=== PATIENT | male | born 1955 | race Caucasian/White ===

== ENCOUNTER 2017-06-23 13:23 | Emergency (ER) | payer MEDICAID ==
--- NOTE | 2017-06-23 13:49 | EDM.PDOC ---
ED HPI GENERAL MEDICAL PROBLEM - General Chief Complaint: Lower Extremity Injury/Pain Stated Complaint: HURT RT ANKLE Time Seen by Provider: 06/23/17 13:40 Source of Information: Reports: Patient History Limitations: Reports: No Limitations - History of Present Illness INITIAL COMMENTS - FREE TEXT/NARRATIVE: 61 yo male slipped on the ice about 8 pm last david. with resulting ankle injury. Here for eval. No other injuries. 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: Other (see below) (none) Right Arm Pain Score (Numeric/FACES): 8 - Related Data Allergies Allergy/AdvReac Type Severity Reaction Status Date / Time levofloxacin [From Levaquin] Allergy Muscle Verified 06/23/17 13:38 Aches Sulfa (Sulfonamide Allergy Itching Verified 06/23/17 13:38 Antibiotics) Home Meds: Home Meds NK [No Known Home Meds] 06/23/17 [History] Past Medical History Cardiovascular History: Reports: Hypertension Musculoskeletal History: Reports: Gout Psychiatric History: Reports: ADHD, Anxiety Social & Family History - Tobacco Use Smoking Status *Q: Never Smoker - Recreational Drug Use Recreational Drug Use: No Review of Systems - Review of Systems Review Of Systems: See Below Constitutional: Reports: No Symptoms Musculoskeletal: Reports: Joint Swelling (R ankle) Skin: Reports: Bruising Neurological: Reports: No Symptoms ED EXAM, GENERAL - Physical Exam Exam: See Below Exam Limited By: No Limitations General Appearance: Alert, WD/WN, No Apparent Distress Extremities: Joint Swelling (R ankle), Other (No lateral foot pain. Minimal proximal fibula tenderness. ) Neurological: Alert, Oriented, CN II-XII Intact, Normal Cognition, No Motor/ Sensory Deficits Psychiatric: Normal Affect, Normal Mood Skin Exam: Warm, Dry, Intact, Ecchymosis (early bruising noted. ). No: Erythema Course - Vital Signs Text/Narrative:: short leg posterior splint applied by nursing. Last Recorded V/S: Last Vital Signs Temp 36.2 C 06/23/17 13:34 Pulse 92 04/15/18 13:34 Resp 16 06/23/17 13:34 BP 139/80 06/23/17 13:34 Pulse Ox 97 06/23/17 13:34 - Orders/Labs/Meds Orders: Active Orders 24 hr Category Date Time Status Ankle Min 3V Rt [CR] Stat Exams 06/23/17 13:46 Ordered - Radiology Interpretation Free Text/Narrative:: R ankle [id number] fibula fx Departure - Departure Time of Disposition: 14:40 Disposition: Home, Self-Care 01 Condition: Fair Clinical Impression: Fracture of distal fibula Qualifiers: Encounter type: initial encounter Fracture type: closed Fracture morphology: unspecified fracture morphology Laterality: right Qualified Code(s): S82.831A - Other fracture of upper and lower end of right fibula, initial encounter for closed fracture - Discharge Information Referrals: PCP,None [Primary Care Provider] - Forms: ED Department Discharge - My Orders Last 24 Hours: My Active Orders 06/23/17 13:46 Ankle Min 3V Rt [CR] Stat - Assessment/Plan Last 24 Hours: My Active Orders 06/23/17 13:46 Ankle Min 3V Rt [CR] Stat
--- NOTE | 2017-06-24 09:54 | CR ---
Ankle Min 3V Rt HISTORY: Injury COMPARISON: None FINDINGS: Fracture through the distal fibula. There does appear to be some chronic remodeling in the fibula likely from prior injury. There is cortical step-off of the lateral aspect of the distal fibul a. The medial malleolus and posterior malleolus appear unremarkable. Moderate lateral swelling.
--- NOTE | 2017-06-24 09:55 | CR ---
Knee 3V Rt HISTORY: Pain COMPARISON: None FINDINGS: No fracture or effusion. There is good joint space preservation. Minimal bony spurring off the superior anterior margin of the patella.
== END 2017-06-23 15:35 | disposition home or self-care (01) ==
LOC: JP.ED 13:23
DX: S82.831A Other fracture of upper and lower end of right fibula, initial encounter for closed fracture (principal); I10 Essential (primary) hypertension; Z88.2 Allergy status to sulfonamides; Z88.8 Allergy status to other drugs, medicaments and biological substances; W00.0XXA Fall on same level due to ice and snow, initial encounter
CPT/HCPCS: 29515; 73562-26-RT; 73562-RT; 73610-26-RT; 73610-RT; 99283; 99284-25

== ENCOUNTER 2017-07-02 14:19 | Day surgery (SDC) | payer MEDICAID ==
[~2017-07-02 14:19] MED LIST: Ketamine 500 MG/5 ML MDV IV SCH; Lactated Ringers 1,000 ML IV SCH; Tranexamic Acid 660 MG in Sodium Chloride 0.9% 50 ML IV SCH; ceFAZolin 2 GM in Premix Bag 1 BAG IV ONE
[2017-07-02] MEDS ORDERED: Gentamicin 40 MG/ML 2 ML Vial ONE (14:29)
[2017-07-02] MEDS ORDERED: Bupivacaine 0.5% 50 ML MDV ONE (14:29)
[2017-07-02] MEDS ORDERED: Povidone-Iodine 10% Soln 118.25 ML Bottle ONE (14:29)
[2017-07-02] MEDS ORDERED: fentaNYL 250 MCG/5 ML SDV ONE (14:41)
[2017-07-02] MEDS ORDERED: Ondansetron 4 MG/2 ML SDV ONE (14:42)
[2017-07-02] MEDS ORDERED: Dexamethasone 4 MG/ML SDV ONE (14:42)
[2017-07-02] MEDS ORDERED: Succinylcholine 200 MG/10 ML MDV ONE (14:42)
[2017-07-02] MEDS ORDERED: Propofol 200 MG/20 ML SDV ONE (14:42)
[2017-07-02] MEDS ORDERED: Glycopyrrolate 0.2 MG/ML 5 ML MDV ONE (14:42)
[2017-07-02] MEDS ORDERED: Neostigmine Methylsulfate 1 MG/ML 5 ML Syringe ONE (14:42)
[2017-07-02] MEDS ORDERED: Rocuronium 50 MG/5 ML Vial ONE (14:42)
[2017-07-02] MEDS ORDERED: Ketorolac 60 MG/2 ML SDV IM ONE (16:28)
[2017-07-02] MEDS ORDERED: Acetaminophen/oxyCODONE 325-5 MG Tab PO PRN (17:48)
--- NOTE | 2017-07-03 00:26 | OR ---
DATE OF PROCEDURE: 07/02/2017 PREOPERATIVE DIAGNOSIS: Right distal tibial fracture. POSTOPERATIVE DIAGNOSIS: Right distal tibial fracture. PROCEDURE PERFORMED: Open reduction and internal fixation, right distal fibular fracture. ANESTHESIA: General endotracheal intubation. FLUID: Lactated Ringer solution. ESTIMATED BLOOD LOSS: Less than 10 mL. COMPLICATION: None. SPECIMEN: None. DISCHARGE DISPOSITION: Stable to PACU. INDICATIONS FOR THE PROCEDURE: The patient slipped on the ice and injured his ankle on July 23. He was seen yesterday in the clinic. Preoperative imaging confirmed the above- mentioned diagnosis. Risks and benefits of the procedure were explained to the patient. Informed consent was obtained. DETAILS OF PROCEDURE: The patient was seen preoperatively by myself and the anesthesia staff in the preoperative holding area, where the operative site was marked. He was brought to the operative suite by the anesthesia staff, where general anesthesia was administered. A well-padded tourniquet was placed on the right thigh. All extremities found to be well padded. The right lower extremity was then prepped and draped in a sterile manner. Time- out was called identifying the correct patient, correct procedure, the correct site, and antibiotics had been given with an appropriate period of time. The right lower extremity was then exsanguinated. Tourniquet was raised to 300 mmHg for 33 minutes and let down after closure. Longitudinal incision was made over the distal fibula shaft approximately 13 to 14 cm. I used an elevator to go through the hematoma and then elevate the soft tissues bluntly as to not damage the superficial peroneal nerve. The superficial peroneal nerve was not encountered during the procedure. An elevator was used to clear the hematoma and soft tissue off the distal fibula. The distal fibula had split in a sagittal manner and then the distal fragment had flexed a great deal of soft tissue was removed. I irrigated quite a bit. It was evident after looking at this under fluoroscopy that there was a previous fracture, which had formed a slight malunion. I decided not to refractured this and rather repair the current fracture that was present. I reapproximated everything as best as I could and then applied the distal fibular plate. I applied four cortical screws and three distal lockers. We took final films in AP and lateral and then copiously irrigated with saline and then closed with #1 Stratafix and estrella followed by Betadine-soaked Adaptic and a sterile dressing. The tourniquet was let down. The patient was then transferred to his hospital bed and taken to the PACU in stable condition. Luis Jaimes DO /[id number]
== END 2017-07-02 18:15 | disposition home or self-care (01) ==
LOC: JP.SDS 14:19
PROVIDERS: ATTEND Orthopaedic Surgery
DX: S82.831A Other fracture of upper and lower end of right fibula, initial encounter for closed fracture (principal); I10 Essential (primary) hypertension; F41.9 Anxiety disorder, unspecified; W00.0XXA Fall on same level due to ice and snow, initial encounter; Z87.891 Personal history of nicotine dependence; Z88.1 Allergy status to other antibiotic agents; Z88.2 Allergy status to sulfonamides; Z79.899 Other long term (current) drug therapy
CPT/HCPCS: 27792; 93005; A9270; C1713; J0330; J0690; J1100; J1885; J2405; J2704; J3010; J7120; J1580; J2710

== ENCOUNTER 2017-07-21 15:50 | Emergency (ER) | payer MEDICAID ==
--- NOTE | 2017-07-21 17:24 | EDM.PDOC ---
ED HPI GENERAL MEDICAL PROBLEM - General Chief Complaint: ENT Problem Stated Complaint: COTTON SWAB STUCK IN RT EAR Time Seen by Provider: 07/21/17 17:15 Source of Information: Reports: Patient, RN Notes Reviewed History Limitations: Reports: No Limitations - History of Present Illness INITIAL COMMENTS - FREE TEXT/NARRATIVE: 61-year-old gentleman presents emergency department today after having a Q-tip break off in his left ear - Related Data Allergies Allergy/AdvReac Type Severity Reaction Status Date / Time levofloxacin [From Levaquin] Allergy Muscle Verified 07/02/17 14:34 Aches Sulfa (Sulfonamide Allergy Itching Verified 07/02/17 14:34 Antibiotics) Home Meds: Home Meds Acetaminophen/oxyCODONE [Percocet 325-5 MG] 1 tab PO TID PRN 07/01/17 [History] diphenhydrAMINE HCl [Benadryl Allergy] 25 mg PO Q4HR PRN 07/01/17 [History] Colchicine 0.6 mg PO DAILY PRN 07/02/17 [History] Acetaminophen/HYDROcodone [[place] 325-5 MG] 1 tab PO TID PRN 07/15/17 [History] Past Medical History HEENT History: Reports: Impaired Vision Cardiovascular History: Reports: CAD, High Cholesterol, Hypertension Respiratory History: Reports: Bronchitis, Recurrent Gastrointestinal History: Reports: None Genitourinary History: Reports: Prostate Disorder Musculoskeletal History: Reports: Fracture, Gout Other Musculoskeletal History: R distal fibula Fx 06/23/17 Neurological History: Reports: None Psychiatric History: Reports: ADHD, Anxiety Endocrine/Metabolic History: Reports: None Hematologic History: Reports: None Immunologic History: Reports: None Oncologic (Cancer) History: Reports: None Dermatologic History: Reports: None - Infectious Disease History Infectious Disease History: Reports: Chicken Pox - Past Surgical History Head Surgeries/Procedures: Reports: None HEENT Surgical History: Reports: Oral Surgery Cardiovascular Surgical History: Reports: None Respiratory Surgical History: Reports: None GI Surgical History: Reports: Colonoscopy Endocrine Surgical History: Reports: None Neurological Surgical History: Reports: None Oncologic Surgical History: Reports: None Dermatological Surgical History: Reports: None Social & Family History - Family History Family Medical History: Noncontributory - Tobacco Use Smoking Status *Q: Never Smoker - Caffeine Use Caffeine Use: Reports: None - Recreational Drug Use Recreational Drug Use: No ED ROS ENT - Review of Systems Review Of Systems: See Below Constitutional: Reports: No Symptoms HEENT: Reports: Ear Pain ED EXAM, ENT - Physical Exam Exam: See Below Text/Narrative:: Examination left ear I do appreciate a ball of cotton in the ear this is removed with an alligator forceps reexamination of the left ear tympanic membrane clear and foley, Exam Limited By: No Limitations General Appearance: Alert, WD/WN, No Apparent Distress Course - Vital Signs Last Recorded V/S: Last Vital Signs Temp 98.6 F 07/21/17 17:00 Pulse 91 07/21/17 17:00 Resp 18 07/21/17 17:00 BP 121/67 07/21/17 17:00 Pulse Ox Departure - Departure Time of Disposition: 17:24 Disposition: Home, Self-Care 01 Condition: Good Clinical Impression: Foreign body in ear Qualifiers: Encounter type: initial encounter Laterality: left Qualified Code(s): T16.2XXA - Foreign body in left ear, initial encounter - Discharge Information Referrals: PCP,None [Primary Care Provider] - Additional Instructions: Follow-up primary care as needed - Assessment/Plan Plan: Assessment Acuity = acute Site and laterality = broken Q-tip left ear status post removal Etiology = poor quality Q-tips Manifestations = none Location of injury = Home Lab values = none Plan Follow-up primary care as needed This note was dictated using [employer] voice recognition software please call with any questions on syntax or grammar.
== END 2017-07-21 17:32 | disposition home or self-care (01) ==
LOC: JP.ED 15:50
DX: T16.2XXA Foreign body in left ear, initial encounter (principal); I10 Essential (primary) hypertension; E78.00 Pure hypercholesterolemia, unspecified; F41.9 Anxiety disorder, unspecified; Z79.899 Other long term (current) drug therapy; Z88.2 Allergy status to sulfonamides; Z88.1 Allergy status to other antibiotic agents
CPT/HCPCS: 69200; 99283-25